=== PATIENT | male | born 1950 | race Caucasian/White ===

== ENCOUNTER 2025-06-27 16:13 | Emergency (ER) | payer SELFPAY ==
[2025-06-27 16:17] VITALS: BP 99/64
[2025-06-27 16:19] VITALS: BP 99/64
[2025-06-27 16:27] VITALS: BMI 36.0
[2025-06-27 16:31] VITALS: BP 96/61
[2025-06-27 16:35] LABS: Hematocrit 42.5 % (39.0-52.0); Hemoglobin 14.2 g/dL (13.0-18.0); Mean Corp Hgb Conc. 33.4 g/dL (33.0-37.0); Mean Corpuscular Volume 89.9 fL (80.0-94.0); Nucleated Red Blood Cells % 0 % (-); Platelet Count 358 10^3/uL (130-400); Red Cell Dist. Width 12.4 % (11.5-14.5)
[2025-06-27] MEDS: NSS 1000 IV (16:58)
[2025-06-27 17:13] VITALS: BP 110/76
[2025-06-27 17:15] LABS: ALT (SGPT) 31 U/L (0-50); AST (SGOT) 30 U/L (17-59); Albumin 4.4 g/dl (3.5-5.0); Alkaline Phosphatase 76 U/L (38-126); Blood Urea Nitrogen 26 mg/dl (9-20); Calcium 9.8 mg/dl (8.4-10.2); Carbon Dioxide 24 mmol/L (22-30); Chloride 104 mmol/L (98-107); Estimated Creatinine Clearance 67 ml/min; Glucose 178 mg/dl (70-99); Lipase 183 U/L (23-300); Potassium 4.0 mmol/L (3.5-5.1); Sodium 138 mmol/L (135-145); Total Protein 7.2 g/dl (6.3-8.2); Troponin I < 0.012 ng/ml; eGFR 57.65
--- NOTE | 2025-06-27 18:38 | ED.GENMED ---
History of Present Illness
<Jan Del Valle PA-C - Last Filed: 06/27/25 20:16>
General
Chief Complaint: Fainting/Passed Out
Time Seen by Provider: 06/27/25 16:49
History of Present Illness
History of Present Illness:
75-year-old male with history of seizure disorder, hypertension, and hyperlipidemia presents to the emergency department for evaluation of a syncopal event that occurred after an outdoor rastafari event. Patient states that he was outside for a long
period of time, he had eaten and drank well, does not consume alcoholic beverages, he did feel hot and sat down in a wheelchair which time his nephew saw him lose consciousness and promptly throw up. Patient states 'this was not a seizure I have
them all my life'. Denies chest pain or shortness of breath. Feels well at this time
Review of Systems
<Jan Del Valle PA-C - Last Filed: 06/27/25 20:16>
Review of Systems
Allergies reviewed?: Yes
All Other Systems: ROS reviewed and negative except as documented in HPI and ROS
Phy Exam
<Jan Del Valle PA-C - Last Filed: 06/27/25 20:16>
Physical Exam
Physical Exam:
GEN: Well appearing, NAD, WDWN
HEENT: Oral mucosa moist, no scleral icterus, no nasal congestion
Cardiac: Regular rate and rhythm, no murmur
Lung: No respiratory distress, no tachypnea, lungs clear to auscultation bilaterally
MSK: No gross deformity or injuries
Skin: Good color, no pallor or jaundice, no rashes
Neuro: AO x3; CN II-XII grossly intact. BUE strength 5/5 in all arguello, sensation intact and symmetric. BLE strength 5/5 in all arguello, sensation intact and symmetric
Psych: Calm, cooperative
Course
<Jan Del Valle PA-C - Last Filed: 06/27/25 20:16>
Orders/Labs/Results
Orders:
Orders
06/27/25 16:26
Electrocardiogram (*1) Urgent
Reason for Study: Syncope
06/27/25 16:27
EKG- Treatment ONCE
06/27/25 16:29
Complete Blood Count/With Diff Urgent
Comprehensive Metabolic Panel Urgent
Lipase Urgent
Troponin I Urgent
06/27/25 16:53
0.9% Sodium Chloride 1000 ml [Nss] 1,000 ml IV BOLUS
CR Chest - 2 Views Urgent
Comment:
Reason For Exam: syncope
06/27/25 17:57
Electrocardiogram (*1) Urgent
Reason for Study: Syncope
EKG- Treatment ONCE
06/27/25 18:26
Electrocardiogram (*1) Urgent
Reason for Study: Chest Pain
EKG- Treatment ONCE
Abnormal Lab Results
06/27/25
16:29
WBC 14.8 H 10^3/uL
(4.8-10.8)
Abs Immat Gran (auto) 0.1 H 10^3/uL
(0-0.05)
Absolute Neuts (auto) 10.1 H 10^3/uL
(1.4-6.5)
Absolute Monos (auto) 1.0 H 10^3/uL
(0.1-0.6)
BUN 26 H mg/dl
(9-20)
Glucose 178 H mg/dl
(70-99)
06/27/25 16:29
06/27/25 16:29
Vital Signs
Initial and Last Documented VS:
Initial Vital Signs
Temp Pulse Resp BP Pulse Ox
98.4 F 78 15 99/64 94
06/27/25 16:17 06/27/25 16:17 06/27/25 16:17 06/27/25 16:17 06/27/25 16:17
Last Documented Vital Signs
Temp Pulse Resp BP Pulse Ox
98.4 F 80 24 110/76 95
06/27/25 16:17 06/27/25 17:13 06/27/25 17:13 06/27/25 17:13 06/27/25 18:39
<Mine Sloan, DO - Last Filed: 06/27/25 18:52>
Orders/Labs/Results
Orders:
Orders
06/27/25 16:26
Electrocardiogram (*1) Urgent
Reason for Study: Syncope
06/27/25 16:27
EKG- Treatment ONCE
06/27/25 16:29
Complete Blood Count/With Diff Urgent
Comprehensive Metabolic Panel Urgent
Lipase Urgent
Troponin I Urgent
06/27/25 16:53
0.9% Sodium Chloride 1000 ml [Nss] 1,000 ml IV BOLUS
CR Chest - 2 Views Urgent
Comment:
Reason For Exam: syncope
06/27/25 17:57
Electrocardiogram (*1) Urgent
Reason for Study: Syncope
EKG- Treatment ONCE
06/27/25 18:26
Electrocardiogram (*1) Urgent
Reason for Study: Chest Pain
EKG- Treatment ONCE
Abnormal Lab Results
06/27/25
16:29
WBC 14.8 H 10^3/uL
(4.8-10.8)
Abs Immat Gran (auto) 0.1 H 10^3/uL
(0-0.05)
Absolute Neuts (auto) 10.1 H 10^3/uL
(1.4-6.5)
Absolute Monos (auto) 1.0 H 10^3/uL
(0.1-0.6)
BUN 26 H mg/dl
(9-20)
Glucose 178 H mg/dl
(70-99)
06/27/25 16:29
06/27/25 16:29
Vital Signs
Initial and Last Documented VS:
Initial Vital Signs
Temp Pulse Resp BP Pulse Ox
98.4 F 78 15 99/64 94
06/27/25 16:17 06/27/25 16:17 06/27/25 16:17 06/27/25 16:17 06/27/25 16:17
Last Documented Vital Signs
Temp Pulse Resp BP Pulse Ox
98.4 F 80 24 110/76 95
06/27/25 16:17 06/27/25 17:13 06/27/25 17:13 06/27/25 17:13 06/27/25 18:39
<Jan Del Valle PA-C - Last Filed: 06/27/25 20:16>
MDM/Problems Addressed
MDM/Problems Addressed:
EKG independently interpreted by me shows questionable ST elevations inferiorly and anteriorly although in a pattern that is suspicious for early repolarization. He has no chest pain or cardiac symptoms at this time. Workup is reassuring. We did
discuss with the patient the potential benefit of staying in the emergency department for repeat troponin given the abnormal EKG however he declines this and would like to go home. Overall I feel ACS is highly unlikely given the presentation and
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
<Jan Del Valle PA-C - Last Filed: 06/27/25 20:16>
*Pulse Oximetry
SaO2: 95
Oxygen Mode of Delivery: Room air
Patient hypoxic: no
*Critical Care Note
Total Time (30-74mins, 75-104mins- exclusive of procedures): Not Applicable
ED Attending Note
<Jan Del Valle PA-C - Last Filed: 06/27/25 20:16>
-
Portions of this chart may have been created with voice recognition software.� Occasional wrong word or��sound alike� substitutions may have occurred due to the inherent limitations of voice recognition software.
<Mine Sloan, DO - Last Filed: 06/27/25 18:52>
ED Attending Note
Patient seen and examined by attending physician: Yes
I performed the substantive portion of visit, reviewed & personally made and approve the management plan that is documented in note by myself or [place].: Yes
I performed a history and physical exam of patient and discussed management with resident, I reviewed resident's note and agree with documented findings and plan of care.: Yes
ED Attending Note:
75-year-old male presents to the ER for evaluation after near fainting episode that occurred today. Patient denies any prior history of syncope or ACS. He states he feels well at time of my evaluation. Mucous membranes moist, GCS is 15, speech is
clear. I discussed with him minor abnormality seen on initial EKG, no change on repeat EKG. Initial troponin is negative. I discussed with the benefit of second troponin given proximity of arrival to initial lab draw. Patient declining any
further evaluation. He expressed understanding need to follow-up with his primary care physician for reevaluation and further care. 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
Discharge Plan
Departure
Patient Disposition: Home (Routine Discharge)
Date of Disposition: 06/27/25
Time of Disposition: 18:38
Patient with high blood pressure during this ER visit?: No
Discharge Problem:
Heat syncope
Instructions: Syncope (Fainting) (DC)
Referrals:
UNKNOWN - PT DOES,NOT KNOW [Family Provider]
Interventions
Interventions:
*Risk Screen - Suicide Last Done: 06/27/25 16:17
*General Assessment Last Done: 06/27/25 16:17
*Neglect/Abuse Screening Last Done: 06/27/25 16:17
*Nursing Disposition Last Done: 06/27/25 18:56
ED- Cardiac Assessment Last Done: 06/27/25 17:46
ED- Neurological Assessment Last Done: 06/27/25 17:46
Discharge Date and Time
Discharge Date/Time: 06/27/25 18:57
Print Language: ARMENIAN
== END 2025-06-27 18:57 | disposition home or self-care (01) ==
LOC: EMR 16:13
PROVIDERS: Student in an Organized Health Care Education/Training Program; EMERGENCY PHYSICIAN Emergency Medicine
DX: T67.1XXA Heat syncope, initial encounter (principal); X30.XXXA Exposure to excessive natural heat, initial encounter; G40.909 Epilepsy, unspecified, not intractable, without status epilepticus; I10 Essential (primary) hypertension; E78.00 Pure hypercholesterolemia, unspecified
CPT/HCPCS: 99283; 71046; 80053; 83690; 84484; 85025; 93005